=== PATIENT | female | born 1955 | race Caucasian/White ===

== ENCOUNTER 2023-11-04 20:02 | Emergency (ER) | payer SELFPAY ==
[2023-11-04 20:06] VITALS: BP 152/87
--- NOTE | 2023-11-04 22:32 | ED.GENMED ---
History of Present Illness
General
Chief Complaint: Musculo-Skeletal Complaint
Source: patient
Time Seen by Provider: 11/04/23 21:33
History of Present Illness
History of Present Illness:
68-year-old female with past medical history of atrial fibrillation presenting to the emergency department for evaluation after she was at work on Tuesday and another coworker slipped and fell into the patient causing her to fall forward onto a
table injuring her left lower back. Patient states that since that time she has had pain to the left lower back but over the last few days the pain is also started to travel up into her mid back and neck area. She has noted history for L4/L5 back
surgery (patient unsure as to exactly what she had done in this area) and often times deals with sciatica type pain. Has been taking some naproxen for pain relief with slight help. Patient denies any focal weakness or numbness, fevers or
infectious symptoms or any other injuries sustained.
Past History
Past History
ED Past Medical History: Arrthythmia
ED Past Surgical History: Cardiac, Orthopedic and Other
Social History
Tobacco: Non-smoker
Alcohol: None
Drug: None
Personal:
Living: with family
Employment: Employed
Review of Systems
Review of Systems
All Other Systems: ROS reviewed and negative except as documented in HPI and ROS
Phy Exam
Physical Exam
Physical Exam:
GENERAL: Alert , in no apparent distress
EYE: clear conjunctiva b/l
NECK: Supple
ENT: mmm.
BACK: Normal range of motion, mild tenderness left lower back, no midline bony tenderness, no rashes
NEUROLOGICAL: Alert and oriented, no focal neuro deficits. sensation grossly intact and equal to light touch bilateral lower extremities, ambulates with steady gait, (-)SLR b/l
SKIN: Warm and dry, skin intact.
MUSCULOSKELETAL: No edema, well perfused. EHL intact bilaterally
PSYCH: Normal and appropriate interaction.
Scores
Heart Failure Risk
Heart Failure Risk Score: Not Applicable
Heart Score for Chest Pain Patients
STEMI patient?: Not applicable
Withdrawal Assessment of Alcohol
Withdrawal Assessment Completed?: Not applicable
Course
Vital Signs
Initial and Last Documented VS:
Initial Vital Signs
Temp Pulse Resp BP Pulse Ox
98.2 F 82 18 152/87 97
11/04/23 20:06 11/04/23 20:06 11/04/23 20:06 11/04/23 20:06 11/04/23 20:06
Last Documented Vital Signs
Temp Pulse Resp BP Pulse Ox
98.2 F 82 18 152/87 97
11/04/23 20:06 11/04/23 20:06 11/04/23 20:06 11/04/23 20:06 11/04/23 20:06
MDM/Problems Addressed
Differential Diagnosis Includes:
lumbar strain, DDD, less concern for fracture, no neurologic features to suggest cauda equina, no infectious etiology
MDM/Problems Addressed:
68-year-old female presenting the emergency department for evaluation of left-sided lower back pain that began after a coworker fell causing the patient to fall forward onto a table that she was standing in front of. Since that time patient has had
left lower back pain. Has been taking some naproxen with minimal relief. Patient stating that she came to the ER in hopes to get an exact diagnosis for her pain. Explained to patient that based off the mechanism it is most likely a strain or
muscular etiology but that we did not have concern for cauda equina or acute neurologic complications. No features to suggest infectious etiology. I did offer x-ray imaging however patient declines. Discussed management including topical agents,
continued anti-inflammatories, heat. Patient declining muscle relaxant. Information for Worker's Comp. provided.
*Pulse Oximetry
Patient hypoxic: no
*Critical Care Note
Total Time (30-74mins, 75-104mins- exclusive of procedures): Not Applicable
ED Attending Note
-
Portions of this chart may have been created with voice recognition software.� Occasional wrong word or��sound alike� substitutions may have occurred due to the inherent limitations of voice recognition software.
Discharge Plan
Departure
Patient Disposition: Home (Routine Discharge)
Date of Disposition: 11/04/23
Time of Disposition: 22:32
Patient with high blood pressure during this ER visit?: Yes
Discharge Problem:
Low back pain
Instructions: Back Pain
Prescriptions:
No Action
naproxen sodium [Aleve] 220 MG tablet
440 mg PO DAILY
escitalopram oxalate 20 MG tablet
20 mg PO DAILY
acetaminophen 325 MG tablet
650 mg PO Q4HPRN PRN (Reason: mild pain) Qty: 1 0RF
oxycodone 5 MG tablet
5 mg PO Q4HPRN PRN (Reason: breakthrough/severe pain) Qty: 10 0RF
Referrals:
Hesham Morris, DO [Family Provider] -
Interventions
Interventions:
*Risk Screen - Suicide Last Done: 11/04/23 20:06
*General Assessment Last Done: 11/04/23 20:06
*Neglect/Abuse Screening Last Done: 11/04/23 20:06
ED- Fall Risk Assessment Last Done: 11/04/23 21:11
*ED COVID-19 Vaccine History Last Done: 11/04/23 22:21
*Nursing Disposition Last Done: 11/04/23 22:43
ED-Musculoskeletal Assessment Last Done: 11/04/23 21:11
Discharge Date and Time
Discharge Date/Time: 11/04/23 22:44
Print Language: CYPRIOT
== END 2023-11-04 22:44 | disposition home or self-care (01) ==
LOC: EMR 20:02
PROVIDERS: EMERGENCY PHYSICIAN Emergency Medicine; FAMILY PHYSICIAN Internal Medicine
DX: M54.50 Low back pain, unspecified (principal); W01.190A Fall on same level from slipping, tripping and stumbling with subsequent striking against furniture, initial encounter; Y99.0 Civilian activity done for income or pay; I48.91 Unspecified atrial fibrillation
CPT/HCPCS: 99282